=== PATIENT | female | born 1990 | race Hispanic/Latino ===

== ENCOUNTER → 2021-02-28 11:08 | Outpatient (CLI) | payer OTHER, SELFPAY ==
--- NOTE | ~2021-02-28 | US_ITS ---
EXAMINATION: US pelvic complete w TV EXAM DATE: 02/28/2021 11:42 INDICATION: Check IUD. TECHNIQUE: Pelvic transvaginal sonogram was performed. There are multiple grayscale and Doppler imag es available for interpretation. There is no prior study for comparison. FINDINGS: Uterus measures 10.2 x 3.8 x 3.8 cm, with IUD identified as linear artifact along the ante rior aspect of the lower uterine segment, could be in the myometrium rather than endometrial canal. E ndometrial stripe measures 4 mm, within normal limits. There is no free pelvic fluid. Right adnexa: The ovary measures 4.1 x 3.5 x 3.8 cm and has the dominant follicle. Ovarian vascular f low confirmed. Left adnexa: The ovary measures 2.6 x 2.0 x 2.6 cm and is morphologically normal. Ovarian vascular fl ow confirmed. IMPRESSION: IUD along the anterior lower uterine segment myometrium. Reviewed, dictated and finalized at location [facility]
== END ==
PROVIDERS: Visit Provider Nurse Practitioner
DX: Z30.431 Encounter for routine checking of intrauterine contraceptive device (principal)
CPT/HCPCS: 76830; 76856

== ENCOUNTER 2021-12-01 08:16 | Emergency (ER) | payer OTHER, SELFPAY ==
[2021-12-01 08:18] VITALS: BP 155/102; PULSE 100; RESP 18; TEMP 36.3; O2SAT 100
[2021-12-01 08:51] LABS: Appearance Urine Clear (Clear); Bilirubin Urine Negative (Negative); Blood Urine Negative (Negative); Color Urine Yellow (Yellow); Glucose Urine UA 3+ mg/dL (Negative); Ketones Urine Negative (Negative); Leukocyte Esterase Ur Negative LEU/UL (Negative); Nitrate Urine Negative (Negative); Protein Urine Negative (Negative); Specific Grav Ur 1.025 (1.001-1.035); Urobilinogen Urine 0.2 mg/dL (<2.0); pH Urine 5.5 (5.0-9.0)
[2021-12-01 08:56] LABS: Mucus Urine Rare /lpf; Squamous Epithelial Cell Urine Many /hpf (Few); WBC Urine 0-3 /hpf
[2021-12-01 09:04] LABS: Add Urine Microscopic? YES
--- NOTE | 2021-12-01 09:07 | ED.BACK ---
HPI - Back Pain/Injury General Chief Complaint: Back Pain/Injury Stated Complaint: back pain Time Seen by Provider: 12/01/21 08:35 Source: RN notes reviewed History of Present Illness HPI Narrative: Patient presents emergency department from home for low back pain. Patient states symptoms initially began 2 weeks ago she states she had pain in the lower back worse on the right with radiation into the right leg she states at that time the pain had gotten better after several days she states the pain then had return approximately 5 days ago after work she states she had sat down and had worsening pain and is continued since that time the pain is located in the right lower back radiates down the right leg and around to the right groin states the pain is worse with walking and forward flexion states she has been taking Tylenol ibuprofen at home for the pain with last dose yesterday she denies any fevers or chills abdominal pain numbness or tingling of the extremities bowel or bladder incontinence or any other symptoms of concern states that she has had no bowel or bladder incontinence. Patient denies any direct trauma or injury Related Data Allergies Allergy/AdvReac Type Severity Reaction Status Date / Time codeine Allergy Back Pain Verified 12/01/21 08:20 Review of Systems Review of Systems: Gen.: Denies fevers or chills ENT: Denies congestion Respiratory: Denies shortness of breath or cough CV: Denies chest pain or palpitations GI: Denies abdominal pain nausea, emesis or diarrhea de incontinence Musculoskeletal: See HPI Neuro: Denies numbness, tingling, weakness or focal weakness Skin: Denies rash Except as documented, all other systems reviewed and negative [facility] Past Medical History Medical History (Updated 12/01/21 @ 09:11 by Tha Olivares DO) Patient denies significant medical history Social History Social History (Updated 12/01/21 @ 09:09 by Tha Olivares DO) Smoking status: Never smoker Exam Narrative: APPEARANCE: No acute distress, nontoxic, resting in bed Eyes: EOMI HEENT: Normocephalic, atraumatic, CV: Regular rate and rhythm without murmur RESPIRATORY: No respiratory distress. Clear to auscultation bilaterally. Abdomen: Soft and nontender, no rebound or guarding MUSCULOSKELETAl: Moves all extremities, no clubbing cyanosis or edema Back: No midline lumbar tenderness to palpation or step-off, tender to palpation over right paravertebral muscles L3-5 and piriformis region, pain increased with forward flexion NEURO: Awake and alert. Following commands, speech normal, no focal deficits, muscle strength 5 out of 5 bilateral lower extremities, bilateral patellar reflex 2+ SKIN:: Warm, dry. Normal Color no rash or lesions Course Course Emergency Course: Discussed with patient glucose in urine she states she is followed by her doctor for prediabetes and I discussed with her need for follow-up Discussed with patient results of workup and diagnosis. Discussed need for follow-up with primary care, proper use of medication, and reasons to return to the emergency department. Patient understands and agrees to current treatment plan Vital Signs Vital signs: Vital Signs Temperature 97.3 F L 12/01/21 08:18 Pulse Rate 100 12/01/21 08:18 Respiratory Rate 18 12/01/21 08:18 Blood Pressure 155/102 H 12/01/21 08:18 Pulse Oximetry 100 12/01/21 08:18 Oxygen Delivery Room Air 12/01/21 08:18 Temperature 97.3 F L 12/01/21 08:18 Pulse Rate 100 12/01/21 08:18 Respiratory Rate 18 12/01/21 08:18 Blood Pressure 155/102 H 12/01/21 08:18 Pulse Oximetry 100 12/01/21 08:18 Oxygen Delivery Room Air 12/01/21 08:18 MDM - Back Pain/Injury MDM Narrative Medical decision making narrative: Patient?s pain is positional and localized to back without signs of cord compression or cauda equina. Normal nuerologic exams. No fever noted and no significant risk factors for osteomyelitis or spinal
[2021-12-01] MEDS: IBUPROFEN 600 MG TABLET PO (09:18)
[2021-12-01 09:41] VITALS: BP 146/94; PULSE 90; RESP 18; O2SAT 100
== END 2021-12-01 09:40 | disposition home or self-care (01) ==
PROVIDERS: Emergency Provider Emergency Medicine; PCP Internal Medicine
DX: M54.50 Low back pain, unspecified (principal)
CPT/HCPCS: 81001; 81025; 99283; A9270